=== PATIENT | female | born 1995 | race Two or more races ===

== ENCOUNTER 2017-08-04 21:14 | Emergency (ER) | payer OTHER ==
[~2017-08-04] VITALS: Ht 167.6 cm; Wt 79.4 kg
[2017-08-04 21:30] VITALS: BP 121/53
== END 2017-08-05 01:05 | disposition home or self-care (01) ==
LOC: ER 21:14
DX: S90.121A Contusion of right lesser toe(s) without damage to nail, initial encounter (principal); W22.8XXA Striking against or struck by other objects, initial encounter; Y93.89 Activity, other specified; Y92.89 Other specified places as the place of occurrence of the external cause; Y99.8 Other external cause status
CPT/HCPCS: 73660; 81025